=== PATIENT | male | born 1965 | race Caucasian/White ===

== ENCOUNTER → 2019-10-16 10:13 | Outpatient (CLI) | payer OTHER, SELFPAY ==
[2019-10-16 10:03] VITALS: BMI 27.8
--- NOTE | 2019-10-16 10:15 | RAD_ITS ---
STUDY: X-RAY - LEFT FOOT CLINICAL: Male, 54 years old. patient stepped on thorn two days ago, pain and redness at point of entry, questionable FB TECHNIQUE: 3 view(s) of the foot. COMPARISON: None. FINDINGS: Normal talus, calcaneus, and tarsal bones. Normal visualized subtalar, talonavicular, calcaneocuboid, tarsal and tarsometatarsal articulations. Normal metatarsi. Normal metatarsophalangeal joint of the great toe. Normal tibial and fibular sesamoid bones. Normal interphalangeal joint of the great toe. Normal phalanges of the great toe. Normal second through fifth metatarsophalangeal joints. Normal interphalangeal joints and phalanges of the lesser toes. Small air bubbles are seen in the soft tissues at the medial aspect of the foot near the penetrating wound may represent an infectious process. RAD/Foot min 3 Views IMPRESSION: Small air bubbles are seen in the soft tissues at the medial aspect of the foot near the penetrating wound may represent an infectious process. Electronically Signed: Megha Mendez, at 11:18 EDT Tel , Service support ,
== END ==
PROVIDERS: Referring Provider Physician Assistant; Visit Provider Physician Assistant
DX: S91.322A Laceration with foreign body, left foot, initial encounter (principal)
CPT/HCPCS: 73630

== ENCOUNTER 2022-09-27 09:00 | Outpatient (RCR) | payer SELFPAY, OTHER ==
--- NOTE | 2022-08-30 09:39 | HP.OTEVAL_ITS ---
Patient's Visit Information Visit Information Visit Information: PEYMAN DUMONT is a 56 year old M, referred to Occupational Therapy by Dr. Delaney Laughlin MD, with a diagnosis of other intraarticular fracture of lower end of right radius for closed fx. Date of Evaluation: 08/30/22 Occupational Therapist: Alem Vences Subjective Subjective: Patient arrived for OT evaluation. Patient sustained a distal radius fracture 07/27/22 from falling and catching self after a horse hit him and knocked him over. Surgery was on 08/02/22 at [facility]- ORIF plates/screws to distal radius. Patient had pin pulled last Sunday08/23/22. Patient is wearing wrist orthosis provided by [facility] all the time. Patient has slow progression distal radius fracture protocol which as been scanned in. 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 ADLs Comments: indep with self-care Pain R wrist: Current Pain Intensity: 0 ROM Shoulder: R shoulder WNL Elbow: R elbow WNL Forearm: R supination 75 deg, pronation WNL Wrist: R flexion 17; extension 15 MP: R 20 degrees flexion IP: R 55 flexion, extension WNL ROM Comments: able to make a full fist, able to oppose all digits but some trouble with little finger Strength Automotive Sales Specialist: L 105# Lateral Pinch: L 18# Tripod Pinch: L 16# Tip-to-Tip Pinch: L 10# Edema Wrist: R 9 inches Other: R thumb 3.75 inches between MP and IP joints Sensation Sensation Comments: intact sensation Quick DASH-Disab of Arm,Shoulder& Hand Quick DASH Score: 29.5450 Goals Goal:: Patient will demonstrate improved R air traffic supervisor strength within 5# of L air traffic supervisor strength by d/c. Goal:: Patient will demonstrate WNL ROM for wrist flexion/extension by d/c. Goal:: Patient will be indep with scar massage/mgmt techniques. Goal:: Patient will be indep with HEP. Goal:: Patient will demonstrate WNL R forearm and thumb ROM. Rehabilitation General Assessment: Patient presents 4 weeks post ORIF surgical repair for right distal radius fracture. Patient is well-appearing without significant swelling and incision site is closed and well healed. Patient is compliant with home exercise program from [facility] thus far including finger/hand exercises. Patient would benefit from skilled OT 2x/week for ~ 6 weeks to progress per protocal and regain functional use of R hand/wrist. Rehabilitation Potential: Excellent Anticipated Interventions Anticipated Interventions: A/AAROM/PROM, Strengthening, Scar Care, Triggerpoint Release, Desensitization, Modalities and Orthoses Visit Plan Frequency: 1-2x /Week Duration: 6 Weeks General Plan: patient to be seen 1-2x/week for about 6 weeks to progress ROM and strengthening per [facility] slow progression protocol for distal radius fx. Patient 4 weeks out this date and started on HEP including hand/finger exercises and short arm motion wrist exercises. Encouraged to complete 10 reps 6x/day and monitor for pain and back off if needed. Patient instructed to cont to wear orthosis during the day and night, removing for exercises. Discussed edema mgmt and beginning scar massage 5-10 min/day. TEXT: Thank you for the opportunity to evaluate your patient. For Medicare and Medicare HMO plans, please review the plan of care and approve it. It will need to be FAXED BACK to us at [phone] for Medicare purposes. Please let me know if there are questions or concerns regarding this plan of care. Physician Signature: Date:
--- NOTE | 2022-09-27 10:32 | HP.OTDCSUM ---
Discharge Summary D/C Summary: It has been my pleasure to treat PEYMAN DUMONT under orders from Dr. Delaney Laughlin MD, for the diagnosis of other intraarticular fracture of lower end of right radius for closed fx for a total of 9 visit(s). Please see the following information for a summary of their discharge status. Overall Improvement % Improvement: 80 Objective Objective/Function: Wrist- 45/25 Supination- 60 Pronation- 60 R- bench precision assembler- 80#, L- bench precision assembler- 117# Tripod R-14#, L-20# Lateral R-16#, L- 20# pt has made good gains with his ROM and strength following his fx. Goals Patient Goals: Regain Strength, Return to Work, Decrease Swelling/Stiffness and Improve Fine Motor Skills Goal:: Patient will demonstrate improved R bench precision assembler strength within 5# of L bench precision assembler strength by d/c. (goal met) Goal:: Patient will demonstrate WNL ROM for wrist flexion/extension by d/c. Goal:: Patient will be indep with scar massage/mgmt techniques. Goal:: Patient will be indep with HEP. Goal:: Patient will demonstrate WNL R forearm and thumb ROM. Plan Plan: Pt to be D/C w/ HEP. D/C Information Discharge Comments: pt was seen for 9 OT session following other intraarticular fracture of lower end of right radius for closed fx ORIF. Pt has made good gains with ROM and strength. He has reported he is IND with ADLs and with IADLs he is cautions . pt states he does not use wrist brace at home just at work. feels stronger and will wean out of brace at work at week 12 s/p. pt will continue with HEP of PROM, AROM and PRE. pt demo understanding and agrees with D/C. d/c sentence: If there are questions or concerns regarding this patient's occupational therapy, please fell free to call me at [phone]. Thank you for the referral of this patient. Sincerely, Monika Perez, OTR/L, CHT
== END 2022-09-27 19:00 | disposition home or self-care (01) ==
LOC: OT 09:00
PROVIDERS: PCP Family Medicine; Referring Provider Orthopaedic Surgery Hand Surgery; Visit Provider Orthopaedic Surgery Hand Surgery
DX: S52.571D Other intraarticular fracture of lower end of right radius, subsequent encounter for closed fracture with routine healing (principal)
CPT/HCPCS: 97110; 97140; 97165; 97530